=== PATIENT | female | born 1945 | race Caucasian/White ===

== ENCOUNTER 2017-09-04 01:13 | Emergency (ER) | payer MEDICARE, MEDICAID, SELFPAY ==
[2017-09-04 01:14] VITALS: BP 153/84; PULSE 78; RESP 18; TEMP 36.7; O2SAT 94; BMI 35.1
--- NOTE | 2017-09-04 01:23 | RAD_ITS ---
STUDY: X-RAY - LEFT KNEE REASON FOR EXAM: Female, 72 years old. Knee pain TECHNIQUE: 5 view(s) of the knee. COMPARISON: None. FINDINGS: Normal visualized distal femur. Normal visualized proximal tibia and fibula. Normal proximal tibiofibular articulation. There is moderate degenerative arthrosis of the medial femorotibial compartment with moderate joint space narrowing. Normal lateral femorotibial compartment. There is moderate degenerative arthrosis of the patellofemoral articulation. There is no demonstrated joint effusion. The soft tissue structures are unremarkable. RAD/Knee 4 or More Views IMPRESSION: There are degenerative changes as noted. There is NO fracture or malalignment. There is NO joint effusion. Electronically Signed: Don May MD at 2:01 EDT , Service support ,
--- NOTE | 2017-09-04 01:24 | ED.DCSUM_ITS ---
- ER Visit Summary Date of Service: 09/04/17 Chief Complaint: [] Pain in her left knee History of Present Illness: The patient is a 72 F complaining of pain in her left knee for last 2 hours. She woke with continuous pain that is sharp and aching worse with movement relieved by rest. She could not get up. No injury. She did not feel this before bed. She has never had this before. She has arthritis and occasionally her knee swells up if she overdoes it but does not think that she did not. Physical Examination: Vital signs reviewed General: Well-nourished well-developed Head: Normocephalic atraumatic Eyes: Pupils equal round and reactive to light extraocular movements intact ENT: TMs clear no hemotympanum no trauma Neck: Nontender full range of motion Cardiovascular: Regular rate rhythm no murmurs normal S1-S2 Respiratory: No distress clear to auscultation bilaterally chest nontender Abdomen: Soft nontender nondistended normal bowel sounds no masses Back: Nontender no CVA tenderness Extremities: Tender just below the kneecap on the left anterior knee without swelling or deformity. Decreased range of motion secondary to pain. Distal neurovascular intact Skin: Normal color no trauma Neuro alert oriented cranial nerves II through XII intact normal strength sensation reflexes Test Results: [] Emergency Department Course and Treatment: [] Patient given a Vicodin tablet and ice. X-ray of the knee obtained. X-ray shows moderate arthritis without other abnormality. Patient felt much better after Vicodin and given John bandage. Will be discharged home. She has a wheelchair for home. She will follow-up as an outpatient. Treatment Plan: [] Disposition: [] Impression: [] Arthritis knee left This note was generated with [employer] dictation software. It may contain incorrect words, spelling, and punctuation that were not noted in review of the chart prior to signing ED Disposition - Plan for ED Patient: Chief Complaint: Lower Extremity Injury Referrals: Bella Montes MD [Primary Care Provider] -
[2017-09-04] MEDS: HYDROcodone Bitartrate/Apap 5/325 Tablet PO (01:41)
[2017-09-04 02:25] VITALS: BP 125/77; PULSE 75; RESP 16; O2SAT 97
--- NOTE | 2017-09-04 02:25 | ED.RN ---
PT GIVEN WRITTEN AND VERBAL DISCHARGE INSTRUCTIONS AND PT VERBALIZES UNDERSTANDING. PT EDUCATED ON HOME GOING PRESCRIPTIONS. PT ASSISTED IN DRESSING AND PLACED IN WHEELCHAIR. SON WHEELS PT OUT OF DEPT WITHOUT ASSISTANCE FROM STAFF.
== END 2017-09-04 02:26 | disposition home or self-care (01) ==
PROVIDERS: Emergency Provider Emergency Medicine; Family Provider Family Medicine; PCP Family Medicine
DX: M17.12 Unilateral primary osteoarthritis, left knee (principal); I10 Essential (primary) hypertension
CPT/HCPCS: 73564; 99284

== ENCOUNTER → 2017-09-20 13:55 | Outpatient (CLI) | payer MEDICARE, MEDICAID, SELFPAY ==
[2017-09-20 16:10] LABS: Anion Gap 8 (5-15); BUN 20 mg/dL (7-18); BUN/Creat Ratio 16.1 RATIO (10-20); Calcium,Total 9.7 mg/dL (8.5-10.1); Chloride 104 mmol/L (98-107); Cholesterol 128 mg/dL (200); Creatinine, Serum 1.24 mg/dL (0.55-1.02); EST Glomerular Filtration Rate 45 mL/min (>60); Est Glom Filt Rate - Afr Amer 55 mL/min (>60); Glucose 99 mg/dL (74-106); High Density Lipoprotein 52 mg/dL; Potassium 3.5 mmol/L (3.5-5.1); Sodium Level 140 mmol/L (136-145); Triglycerides 99 mg/dL; Very Low Density Lipoprotein 20 mg/dL (5-40)
== END ==
PROVIDERS: Family Provider Family Medicine; PCP Family Medicine; Visit Provider Family Medicine
DX: I10 Essential (primary) hypertension (principal)
CPT/HCPCS: 36415; 80048; 80061